=== PATIENT | female | born 1995 | race American Indian/Alaskan Native ===

== ENCOUNTER 2016-12-05 07:45 | Emergency (ER) | payer MEDICAID ==
[2016-12-05] MEDS ORDERED: Sodium Chloride 0.9% 1,000 ML IV ONE (08:08)
--- NOTE | 2016-12-05 08:11 | C.PDOC ---
History Of Present Illness 21 yo female w/o significant PMHx come in for evaluation of epigastric pain gradually developed for past 2 days associated with nausea. Pt reports, pain is worse with food intake, " burning", constant, (+) decrease appetite. Pt sts, " yesterday had Mendez and was unable to finish it, my stomach hurts". Otherwise , pt denies fever, chills, recent illness or abx use, sore throat, CP, SOB, dyspnea, diaphoresis, vomiting, diarrhea, back pain, UTI sx. Ambulate to ED for evaluation, nt in any apparent distress. Time Seen by Provider: 12/05/16 08:01 Chief Complaint (Nursing): Abdominal Pain History Per: Patient Onset/Duration Of Symptoms: Gradual Past Medical History Reviewed: Historical Data, Nursing Documentation, Vital Signs Vital Signs: Last Vital Signs Temp 98 F 12/05/16 09:35 Pulse 76 12/05/16 09:35 Resp 16 12/05/16 09:35 BP 116/68 12/05/16 09:35 Pulse Ox 98 12/05/16 09:35 - Medical History PMH: No Chronic Diseases Surgical History: No Surg Hx Family History: States: No Known Family Hx - Social History Hx Alcohol Use: Yes Hx Substance Use: No - Immunization History Hx Tetanus Toxoid Vaccination: No Hx Influenza Vaccination: No Hx Pneumococcal Vaccination: No Review Of Systems Except As Marked, All Systems Reviewed And Found Negative. Constitutional: Negative for: Fever, Chills Eyes: Negative for: Vision Change ENT: Negative for: Throat Pain, Throat Swelling Cardiovascular: Negative for: Chest Pain, Palpitations Respiratory: Negative for: Cough, Shortness of Breath, Wheezing Gastrointestinal: Positive for: Nausea, Abdominal Pain. Negative for: Vomiting , Diarrhea, Melena, Hematochezia, Hematemesis Genitourinary: Negative for: Dysuria, Frequency Musculoskeletal: Negative for: Back Pain Skin: Negative for: Rash Neurological: Negative for: Weakness, Numbness, Altered Mental Status, Headache , Dizziness Physical Exam - Physical Exam Appears: Well, Non-toxic, No Acute Distress Skin: Normal Color, Warm, Dry, No Rash Head: Normacephalic Eye(s): bilateral: PERRL Nose: No Flaring, No Discharge Oral Mucosa: Moist Throat: No Erythema, No Exudate, No Drooling Neck: Supple Cardiovascular: Rhythm Regular Respiratory: No Decreased Breath Sounds, No Accessory Muscle Use, No Stridor, No Wheezing Gastrointestinal/Abdominal: Soft, Tenderness (epigastric, mod and suprapubic, mild), No Distention, No Guarding, No Rebound Back: No CVA Tenderness Extremity: Normal ROM, No Pedal Edema Neurological/Psych: Oriented x3, Normal Speech ED Course And Treatment - Laboratory Results Result Diagrams: 12/05/16 08:20 12/05/16 08:20 Lab Interpretation: Normal Urine POC: Negative O2 Sat by Pulse Oximetry: 99 Pulse Ox Interpretation: Normal Progress Note: Pt was OBS in ED for 2 hours , reports " feeling better now". Afebrile, hemodynamicaly stable. Non-toxic. PulsEOx 99% RA. ENT: No acute findings. Neck: Supple, (-) meningeal sign. Lungs: CTA B/L, BS equal B/L. CVS : (+)S1S2, reg. ABd: benign, (-) guarding, (-) rebound, (-) localized tenderness. Back: (-) CVA tenderness. Blood work review and appears normal. UA- normal study. Pt has clinical findings c/w epigastric pain. Pt advised on diet restriction. Ref. to f/u with PMD, GI in 2-3 days for re-eavl. return to ED if any worsening or new changes. Disposition Counseled Patient/Family Regarding: Studies Performed, Diagnosis, Need For Followup, Rx Given - Disposition Referrals: [facility] [Outside] Reyes Metcalf MD [Staff Provider] - Disposition: HOME/ ROUTINE Disposition Time: 09:26 Condition: STABLE Additional Instructions: DIET RESTRICTION, AVOID FAST FOOD, FRIED, SPICY OR GREASY FOR 1-2 WEEKS TAKE MEDICATION PRESCRIBED FOLLOW UP WITH PMD, GI IN 2-3 DAYS FOR RE-EVALUATION. RETURN TO ED IF ANY WORSENING OR NEW CHANGES. Prescriptions: Pantoprazole Sodium [Protonix] 40 mg PO DAILY #20 tablet.dr Instructions: Epigastric Pain (ED) Forms: [facility] (Swedish), Work Excuse - Clinical Impression Clinical Impression: Epigastric abdominal pain
[2016-12-05] MEDS ORDERED: Sodium Chloride 0.9% 1,000 ML ONE (08:26)
[2016-12-05 08:34] LABS: BASO # 0.1 K/uL (0.0-0.2); BASO % 0.7 % (0.0-2.0); EOS # 0.4 K/uL (0.0-0.7); HEMATOCRIT 36.4 % (34.0-47.0); LYMPH # 2.1 K/uL (1.0-4.3); LYMPH % 24.7 % (20.0-40.0); MEAN CELL VOLUME 89.8 fL (81.0-99.0); MEAN CORPUSCULAR HEMOGLOBIN 30.1 pg (27.0-31.0); MEAN CORPUSCULAR HGB CONC 33.5 g/dL (33.0-37.0); MEAN PLATELET VOLUME 8.5 fL (7.2-11.7); MONO # 0.5 K/uL (0.0-0.8); MONO % 5.8 % (0.0-10.0); NRBC % 0.1 % (0.0-2.0); RED CELL DISTRIBUTION WIDTH 13.1 % (11.5-14.5); WHITE BLOOD COUNT 8.7 K/uL (4.8-10.8)
[2016-12-05 08:46] LABS: CHLORIDE 103 mmol/L (98-107); POTASSIUM 3.6 mmol/L (3.6-5.2); SODIUM 135 mmol/L (132-148)
[2016-12-05 08:48] LABS: AST/SGOT 27 U/L (14-36); BILIRUBIN,TOTAL 0.5 mg/dL (0.2-1.3); CARBON DIOXIDE 24 mmol/L (22-30); GFR AFRICAN-AMERICAN > 60
[2016-12-05 08:49] LABS: ALB/GLOB RATIO 1.5 (1.0-2.1); ALKALINE PHOSPHATASE 46 U/L (38-126); ALT/SGPT 29 U/L (9-52); BLOOD UREA NITROGEN 12 mg/dL (7-17); CALCIUM 8.6 mg/dl (8.6-10.4); GLUCOSE,RANDOM 78 mg/dL (65-105); TOTAL PROTEIN 6.7 g/dL (6.3-8.3)
[2016-12-05 09:09] LABS: RBC URINE 1 /hpf (0-3); URINE BACTERIA FEW (<OCC); URINE BILIRUBIN NEGATIVE (NEGATIVE); URINE BLOOD NEGATIVE (NEGATIVE); URINE COLOR Yellow (YELLOW); URINE GLUCOSE (UA) NORMAL (Normal); URINE KETONE NEGATIVE (NEGATIVE); URINE LEUKOCYTE ESTERASE 2+ Leu/uL (Negative); URINE PROTEIN NEGATIVE (NEGATIVE); URINE UROBILINOGEN NORMAL mg/dL (0.2-1.0)
[2016-12-05 09:13] LABS: WBC URINE 5 /hpf (0-5)
[2016-12-05 09:37] VITALS: BP 116/68; PULSE 76; RESP 16; TEMP 98
[2016-12-05 15:51] VITALS: O2SAT 99
== END 2016-12-05 09:45 | disposition home or self-care (01) ==
LOC: C.ER 07:45
DX: R10.13 Epigastric pain (principal)
CPT/HCPCS: 80053; 81001; 83690; 84703; 85025; 85610; 85730; 96374; 96375; 99284; J2765; J7040